=== PATIENT | male | born 1945 | race Caucasian/White ===

== ENCOUNTER 2024-05-20 15:34 | Inpatient (IN) | payer MEDICARE ==
[2024-05-20 18:38] LABS: BASOPHILS ABSOLUTE AUTO 0.04 K/uL (0.00-0.10); BASOPHILS PERCENT AUTO 0.6 % (0.1-1.3); EOSINOPHILS ABSOLUTE AUTO 0.05 K/uL (0.00-0.40); EOSINOPHILS PERCENT AUTO 0.8 % (0.0-5.4); HEMATOCRIT 43.9 % (38.4-49.7); HEMOGLOBIN 15.8 g/dL (12.9-16.9); IMMATURE GRAN ABSOLUTE AUTO 0.02 K/uL (0.00-0.23); IMMATURE GRAN PERCENT AUTO 0.3 % (0.0-0.7); LYMPHOCYTES ABSOLUTE AUTO 0.98 K/uL (0.8-3.3); MEAN CORPUSCULAR HEMOGLOBIN 32.6 pg (31.6-35.5); MEAN CORPUSCULAR VOLUME 90.7 fL (81.4-99.0); MONOCYTES ABSOLUTE AUTO 0.73 K/uL (0.20-0.90); MONOCYTES PERCENT AUTO 11.2 % (3.3-12.6); NEUTROPHILS ABSOLUTE AUTO 4.71 K/uL (1.0-7.6); NEUTROPHILS PERCENT AUTO 72.1 % (40.0-78.1); PLATELET COUNT,PLT 164 K/uL (130-375); RED BLOOD CELL COUNT 4.84 M/uL (4.14-5.76); WHITE BLOOD CELL COUNT,WBC 6.5 K/uL (3.2-11.0)
[2024-05-20] MEDS: Sodium Chloride 0.9% 1,000 ML IV ONE (18:39)
[2024-05-20] MEDS: Ondansetron 4 MG/2 ML SDV IVPUSH ONE (18:39)
[2024-05-20 19:39] LABS: A/G RATIO 0.9 (1.2-2.2); ALANINE AMINOTRANSFERASE,ALT 42 U/L (12-78); ALKALINE PHOSPHATASE 59 U/L (46-116); ASPARTATE AMNIOTRANSFERASE,AST 36 U/L (15-37); BILIRUBIN TOTAL 0.5 mg/dL (0.2-1.0); BLOOD UREA NITROGEN,BUN 16 mg/dL (7-18); CALCIUM 8.9 mg/dL (8.5-10.1); CARBON DIOXIDE,CO2 31 mmol/L (21-32); CHLORIDE,CL 93 mmol/L (100-108); CREATININE 1.4 mg/dL (0.8-1.3); EST CRCL DRUG DOSING (CG) 49.27 mL/min; ESTIMATED GFR 52 mL/min (>60); GLUCOSE RANDOM 112 mg/dL (74-106); POTASSIUM,K 3.8 mmol/L (3.6-5.2); PROTEIN TOTAL,TP 8.7 g/dL (6.4-8.2); SODIUM,NA 133 mmol/L (140-148)
[2024-05-20 19:40] LABS: ANION GAP 12.8 mmol/L (5.0-14.0)
[2024-05-20 19:42] LABS: TROPONIN I HIGH SENSITIVITY 7.1 pg/mL (<=60.3)
[2024-05-20 21:11] LABS: APPEARANCE,URINE CLEAR (CLEAR); BILIRUBIN,URINE NEGATIVE (NEGATIVE); COLOR,URINE YELLOW (YELLOW); GLUCOSE,URINE NEGATIVE (NEGATIVE); KETONES,URINE NEGATIVE (NEGATIVE); LEUKOCYTE ESTERASE,URINE NEGATIVE (NEGATIVE); NITRITE,URINE NEGATIVE (NEGATIVE); OCCULT BLOOD,URINE NEGATIVE (NEGATIVE); PROTEIN,URINE >=300 mg/dL (NEGATIVE)
[2024-05-20 21:20] LABS: AMORPHOUS SEDIMENT,URINE OCCASIONAL; BACTERIA,URINE NOT SEEN; EPITHELIAL CELLS,URINE NOT SEEN; MUCUS,URINE MODERATE; RBC,URINE 0-5 (0-5); WBC,URINE 0-5 (0-5)
[2024-05-20] MEDS ORDERED: Sennosides/Docusate Sodium 50-8.6 MG Tab PO PRN (23:31)
[2024-05-20] MEDS ORDERED: Ondansetron 4 MG/2 ML SDV IV PRN (23:31)
[2024-05-20] MEDS ORDERED: Ondansetron 4 MG Tab.DIS PO PRN (23:31)
[2024-05-20] MEDS ORDERED: Magnesium Hydroxide 400 MG/5 ML Susp 30 ML Cup PO PRN (23:31)
[2024-05-21] MEDS: Sodium Chloride 0.9% 1,000 ML IV SCH (00:16)
[2024-05-21] MEDS: Acetaminophen 325 MG Tab PO PRN (00:22)
[2024-05-21 05:44] LABS: HEMATOCRIT 39.5 % (38.4-49.7); HEMOGLOBIN 14.2 g/dL (12.9-16.9); MEAN CORPUSCULAR HEMOGLOBIN 32.9 pg (31.6-35.5); MEAN CORPUSCULAR HGB CONC 35.9 g/dL (31.6-35.5); MEAN CORPUSCULAR VOLUME 91.4 fL (81.4-99.0); RED BLOOD CELL COUNT 4.32 M/uL (4.14-5.76); WHITE BLOOD CELL COUNT,WBC 5.5 K/uL (3.2-11.0)
[2024-05-21 06:01] LABS: C-REACTIVE PROTEIN 4.93 mg/dL (<0.50); CALCIUM 8.3 mg/dL (8.5-10.1); CREATININE 1.2 mg/dL (0.8-1.3); EST CRCL DRUG DOSING (CG) 57.48 mL/min; POTASSIUM,K 3.7 mmol/L (3.6-5.2)
[2024-05-21 06:02] LABS: ANION GAP 10.7 mmol/L (5.0-14.0)
[2024-05-21] MEDS: Pantoprazole 40 MG Tab.CR PO SCH (09:10)
[2024-05-21] MEDS: Losartan 50 MG Tab PO SCH (09:10)
[2024-05-21] MEDS: Oseltamivir 30 MG Cap PO SCH (09:12)
[2024-05-21] MEDS: atorvaSTATin 20 MG Tab PO SCH (09:12)
[2024-05-21] MEDS: Saxagliptin 2.5 MG Tab PO SCH (09:12)
[2024-05-21] MEDS: Allopurinol 100 MG Tab PO SCH (09:13)
[2024-05-21] MEDS ORDERED: Non-Formulary Medication 1 Each (Glipizide [Glucotrol Xl] 10 MG Tab.Er) PO SCH (16:30)
[2024-05-21] MEDS: glipiZIDE 5 MG Tab PO SCH (16:59)
[2024-05-22] MEDS ORDERED: Sodium Chloride 0.9% 10 ML Syringe IV PRN (09:38)
== END 2024-05-22 10:56 | disposition home or self-care (01) | DRG 640 ==
LOC: JP.ED 15:34 → JP.MS 23:10 → OBSVTOIN 05-21 08:20
PROVIDERS: ADMIT Internal Medicine; ATTEND Internal Medicine
DX: E86.0 Dehydration (principal); J96.01 Acute respiratory failure with hypoxia; I10 Essential (primary) hypertension; K52.9 Noninfective gastroenteritis and colitis, unspecified; E87.1 Hypo-osmolality and hyponatremia; J10.1 Influenza due to other identified influenza virus with other respiratory manifestations; H91.90 Unspecified hearing loss, unspecified ear; E78.00 Pure hypercholesterolemia, unspecified; M19.90 Unspecified osteoarthritis, unspecified site; H26.9 Unspecified cataract; E87.6 Hypokalemia; E11.9 Type 2 diabetes mellitus without complications; I15.2 Hypertension secondary to endocrine disorders; Z88.6 Allergy status to analgesic agent; Z88.8 Allergy status to other drugs, medicaments and biological substances; Z79.02 Long term (current) use of antithrombotics/antiplatelets; Z79.899 Other long term (current) drug therapy; Z87.81 Personal history of (healed) traumatic fracture; Z90.89 Acquired absence of other organs
CPT/HCPCS: 36415 ×2; 71045 ×2; 80048; 80053; 81001; 83690; 84484; 85025; 85027; 86140; 87428; 93005; 96361; 96374; 99285; A9270; J2405; J7030 ×3; 99222; 99232; 99238; G0378

== ENCOUNTER 2025-03-14 05:54 | Day surgery (SDC) | payer MEDICARE, OTHER ==
[2025-03-14 06:38] LABS: PLATELET COUNT,PLT 240.0 K/uL (130-375); RED BLOOD CELL COUNT 4.96 M/uL (4.14-5.76); WHITE BLOOD CELL COUNT,WBC 8.0 K/uL (3.2-11.0)
[2025-03-14 06:53] LABS: BLOOD UREA NITROGEN,BUN 18.0 mg/dL (7-18); CARBON DIOXIDE,CO2 29.0 mmol/L (21-32); CHLORIDE,CL 95.0 mmol/L (100-108); CREATININE 1.2 mg/dL (0.8-1.3); EST CRCL DRUG DOSING (CG) 56.58 mL/min; ESTIMATED GFR 62.0 mL/min (>60); GLUCOSE RANDOM 178.0 mg/dL (74-106); POTASSIUM,K 4.0 mmol/L (3.6-5.2); SODIUM,NA 134.0 mmol/L (140-148)
[2025-03-14] MEDS: Nozin Nasal Sanitizer NASBOTH ONE (07:02)
[2025-03-14] MEDS: Lactated Ringers 1,000 ML IV SCH (07:05)
[2025-03-14] MEDS ORDERED: Midazolam 1 MG/ML 2 ML SDV ONE (07:22)
[2025-03-14] MEDS ORDERED: fentaNYL 100 MCG/2 ML SDV ONE (07:22)
[2025-03-14] MEDS ORDERED: Propofol 200 MG/20 ML SDV ONE (07:22)
[2025-03-14] MEDS: Clindamycin in 0.9 % Sod Chlor 900 MG in Premix Bag 1 BAG IV ONE (07:50)
== END 2025-03-14 10:43 | disposition home or self-care (01) ==
LOC: JP.SDS 05:54
PROVIDERS: ATTEND Specialist
DX: G56.01 Carpal tunnel syndrome, right upper limb (principal); G56.21 Lesion of ulnar nerve, right upper limb; I10 Essential (primary) hypertension; E78.00 Pure hypercholesterolemia, unspecified; K21.9 Gastro-esophageal reflux disease without esophagitis; E11.9 Type 2 diabetes mellitus without complications; E66.9 Obesity, unspecified; Z87.891 Personal history of nicotine dependence; Z88.8 Allergy status to other drugs, medicaments and biological substances; Z88.6 Allergy status to analgesic agent; Z88.1 Allergy status to other antibiotic agents; Z79.82 Long term (current) use of aspirin; Z79.899 Other long term (current) drug therapy
CPT/HCPCS: 36415; 64719; 64721; 80048; 85027; A9270; J2250; J2704; J3010; J7120; J0665; J0737; J1920